=== PATIENT | male | born 1970 | race Asian ===

== ENCOUNTER 2023-05-20 02:39 | Emergency (ER) | payer SELFPAY ==
[~2023-05-20] VITALS: Ht 175.3 cm; Wt 70.8 kg
[2023-05-20] MEDS ORDERED: cholesterol pill PO (02:59)
[2023-05-20] MEDS ORDERED: EMPA25TA PO (02:59)
[2023-05-20] MEDS ORDERED: ONDANSETRON 4 MG/2 ML VIAL IV ONE (03:00)
[2023-05-20] MEDS ORDERED: MECLIZINE HCL 25 MG TABLET PO ONE (03:00)
[2023-05-20] MEDS ORDERED: IV NORMAL SALINE 1000 ML BAG IV ONE (03:00)
[2023-05-20] MEDS ORDERED: MECLIZINE HCL 25 MG TABLET ONE (03:00)
[2023-05-20] MEDS ORDERED: ONDANSETRON 4 MG/2 ML VIAL ONE (03:01)
[2023-05-20 03:06] LABS: BASOPHILS % (AUTO) 0.3 % (0.0-2.0); EOSINOPHILS % (AUTO) 0.8 % (0.0-7.0); HEMATOCRIT 43.3 % (36.7-47.1); HEMOGLOBIN 14.5 g/dL (12.5-16.3); LYMPHOCYTES # (AUTO) 3.2 K/uL (0.8-4.8); LYMPHOCYTES % (AUTO) 54.6 % (20.5-51.5); MEAN CORPUSCULAR HEMOGLOBIN 30.4 uug (23.8-33.4); MEAN CORPUSCULAR HGB CONC 34 g/dL (32.5-36.3); MEAN CORPUSCULAR VOLUME 90.8 fL (73.0-96.2); MONOCYTES # (AUTO) 0.3 K/uL (0.1-1.30); MONOCYTES % (AUTO) 5.4 % (0.0-11.0); NEUTROPHILS # (AUTO) 2.3 K/uL (1.8-8.9); NEUTROPHILS % (AUTO) 38.9 % (38.5-71.5); PLATELET COUNT (AUTO) 217 K/uL (152-348); RED BLOOD CELL COUNT(AUTO) 4.77 MIL/uL (4.06-5.63); RED CELL DISTRIBUTION WIDTH 13.9 % (12.1-16.2); WHITE BLOOD COUNT (AUTO) 5.8 K/uL (3.6-10.2)
[2023-05-20] MEDS ORDERED: LORAZEPAM 2 MG/1 ML VIAL ONE (03:08)
[2023-05-20 03:09] LABS: DIFFERENTIAL COMMENT 1
[2023-05-20] MEDS ORDERED: LORAZEPAM 2 MG/1 ML VIAL IV ONE (03:15)
[2023-05-20 03:18] LABS: ALBUMIN 4.2 g/dL (3.4-5.0); BILIRUBIN,DIRECT 0.3 mg/dL (0.0-0.2); BILIRUBIN,TOTAL 1.1 mg/dL (0.2-1.0); TOTAL PROTEIN, SERUM 7.5 g/dL (6.4-8.2)
[2023-05-20 03:23] LABS: CALCIUM 8.1 mg/dL (8.5-10.1); CARBON DIOXIDE 29 mmol/L (21-32); CHLORIDE 103 mmol/L (98-107); CREATININE 0.9 mg/dL (0.6-1.3); GLUCOSE 111 mg/dL (74-106); POTASSIUM 3.3 mmol/L (3.5-5.1); SODIUM SERUM 141 mmol/L (136-145); UREA NITROGEN, BLOOD 28 mg/dL (7-18)
[2023-05-20] MEDS ORDERED: ONDA4TAB11 PO (05:37)
[2023-05-20] MEDS ORDERED: MECL-159 PO (05:37)
[2023-05-20 06:07] VITALS: BP 105/64; O2SAT 97
== END 2023-05-20 06:08 | disposition home or self-care (01) ==
LOC: ER 02:44
DX: R42 Dizziness and giddiness (principal); R11.0 Nausea; E78.5 Hyperlipidemia, unspecified; E11.9 Type 2 diabetes mellitus without complications; Z79.899 Other long term (current) drug therapy
CPT/HCPCS: 99285; 96374; 96361; 96375; 80076; 80048; 85025; 84484 ×2; 36415; 93005; J2060; J2405; J7040; A4663; J8597